=== PATIENT | male | born 1960 | race Caucasian/White ===

== ENCOUNTER 2019-01-28 22:41 | Day surgery (SDC) ==
[2019-01-28] MEDS ORDERED: ASPIRIN ONE (22:57)
[2019-01-28] MEDS ORDERED: MORPHINE IV ONE (23:05)
[2019-01-28 23:31] LABS: BASO# 0.03 X1000 (0.0-0.2); BASO% 0.5 % (0.0-0.8); EOS# 0.14 X1000 (0.0-0.7); EOS% 2.2 % (0.0-10.0); HEMATOCRIT 39.5 % (42.0-52.0); HEMOGLOBIN 13.6 g/dL (14.0-18.0); LYMPH# 2.29 X1000 (1.2-3.4); LYMPH% 36.2 % (20.5-51.1); MCHC 34.4 g/dL (33-37); MCV 81.4 FL (81-99); MONO# 0.88 X1000 (0.11-0.59); MONO% 13.9 % (1.7-9.3); MPV 12.3 FL (7.4-10.4); NEUT# 2.99 X1000 (1.4-6.5); NEUT% 47.2 % (42.2-75.2); PLT 161 X1000 (130-400); RBC 4.85 XMIL (4.7-6.1); RDW 13.9 % (11.5-14.5); WBC 6.33 X1000 (4.8-10.8)
[2019-01-28 23:39] LABS: INR 0.88; PROTIME 12.1 Seconds (11.0-16.0)
[2019-01-28 23:40] LABS: PTT 28.5 Seconds (22.3-41.8)
[2019-01-29 00:07] LABS: AGAP 13; ALB/GLOB RATIO 1.6; ALBUMIN 4.2 g/dL (3.5-5.0); ALKALINE PHOSPHATASE 155 U/L (32-122); BUN 16 mg/dL (8-22); CHLORIDE 102 mmol/L (98-107); COSMO 289; ESTIMATED GFR > 60; GLUCOSE 281 mg/dL (70-104); GOT 19 U/L (10-34); GPT 17 U/L (10-44); POTASSIUM 3.6 mmol/L (3.5-5.1); SODIUM 139 mmol/L (136-145); TCO2 24 mmol/L (25-35); TOTAL BILIRUBIN 0.23 mg/dL (0.20-1.00); TOTAL PROTEIN 6.9 g/dL (6.3-8.3)
[2019-01-29 00:11] LABS: CK PROFILE 487 U/L (24-204)
[2019-01-29 00:31] LABS: CK INDEX 1.2 (0.0-2.5); CK-MB 5.92 ng/mL (0.0-5.0)
[2019-01-29] MEDS ORDERED: NITROGLYCERIN SL PRN (04:39)
[2019-01-29] MEDS ORDERED: TYLENOL PO PRN (04:39)
[2019-01-29] MEDS ORDERED: MORPHINE IV PRN ×2 (04:39→16:46)
[2019-01-29] MEDS ORDERED: ZOFRAN IV PRN (04:39)
[2019-01-29] MEDS: LOVENOX SUBQ SCH ×2 (06:01→06:05)
[2019-01-29 06:03] LABS: CK INDEX 1.2 (0.0-2.5); CK-MB 3.96 ng/mL (0.0-5.0)
[2019-01-29] MEDS: HUMULIN R SUBQ SCH ×4 (06:05→21:03)
[2019-01-29] MEDS ORDERED: PRILOSEC PO SCH (07:00)
[2019-01-29] MEDS: ASPIRIN PO SCH (08:24)
[2019-01-29 14:03] LABS: CK INDEX 1.3 (0.0-2.5); CK-MB 3.54 ng/mL (0.0-5.0)
[2019-01-29] MEDS: PERCOCET-5 PO SCH ×2 (17:39→21:01)
[2019-01-29] MEDS ORDERED: LIPITOR PO SCH (21:00)
[2019-01-29] MEDS ORDERED: PERICOLACE PO SCH (21:00)
[2019-01-29] MEDS: COREG PO SCH (21:01)
[2019-01-29] MEDS: LASIX PO SCH (21:01)
[2019-01-29] MEDS: CYMBALTA PO SCH (21:01)
[2019-01-29 21:31] LABS: CK INDEX 1.4 (0.0-2.5); CK-MB 3.48 ng/mL (0.0-5.0)
[2019-01-29] MEDS: GLUCOTROL XL PO SCH (21:32)
[2019-01-30 05:35] LABS: BASO# 0.04 X1000 (0.0-0.2); BASO% 0.7 % (0.0-0.8); EOS# 0.18 X1000 (0.0-0.7); EOS% 3.3 % (0.0-10.0); HEMATOCRIT 36.5 % (42.0-52.0); HEMOGLOBIN 12.3 g/dL (14.0-18.0); LYMPH# 2.44 X1000 (1.2-3.4); MCH 27.9 PG (27-31); MCHC 33.7 g/dL (33-37); MCV 82.8 FL (81-99); MONO# 0.71 X1000 (0.11-0.59); MONO% 13.1 % (1.7-9.3); MPV 12.1 FL (7.4-10.4); NEUT# 2.05 X1000 (1.4-6.5); NEUT% 37.9 % (42.2-75.2); PLT 155 X1000 (130-400); RBC 4.41 XMIL (4.7-6.1); RDW 13.8 % (11.5-14.5); WBC 5.42 X1000 (4.8-10.8)
[2019-01-30 06:00] LABS: AGAP 9; BUN 10 mg/dL (8-22); CALCIUM 8.6 mg/dL (8.8-10.2); CHLORIDE 103 mmol/L (98-107); CHOLESTEROL 118 mg/dL (0-200); COSMO 279; CREATININE 0.9 mg/dL (0.7-1.2); ESTIMATED GFR > 60; GLUCOSE 171 mg/dL (70-104); HDL 35 mg/dL (35-55); LDL 64 mg/dL; POTASSIUM 3.9 mmol/L (3.5-5.1); SODIUM 138 mmol/L (136-145); TCO2 26 mmol/L (25-35); TRIGLYCERIDES 97 mg/dL (39-160); VLDL 19 mg/dL
[2019-01-30] MEDS: LOVENOX SUBQ SCH (06:29)
[2019-01-30] MEDS: HUMULIN R SUBQ SCH ×2 (06:46→11:39)
[2019-01-30] MEDS ORDERED: KLOR-CON PO SCH (09:00)
[2019-01-30] MEDS ORDERED: SYNTHROID PO SCH (09:00)
[2019-01-30] MEDS ORDERED: PRILOSEC PO SCH (09:00)
[2019-01-30] MEDS ORDERED: HYDROCHLOROTHIAZIDE PO SCH (09:00)
[2019-01-30] MEDS ORDERED: LANTUS INSULIN SUBQ SCH (09:00)
[2019-01-30] MEDS ORDERED: JANUVIA PO SCH (09:00)
[2019-01-30] MEDS: PERCOCET-5 PO SCH ×2 (11:12→14:21)
[2019-01-30] MEDS: LASIX PO SCH (11:14)
[2019-01-30] MEDS: COREG PO SCH (11:14)
[2019-01-30] MEDS: CYMBALTA PO SCH (11:15)
[2019-01-30] MEDS: GLUCOTROL XL PO SCH (11:15)
[2019-01-30] MEDS: ASPIRIN PO SCH (11:25)
[2019-01-30 16:38] VITALS: BP 169/84
== END 2019-01-30 18:14 | disposition home or self-care (01) ==
LOC: ED 22:41 → SUATTDRO 01-29 04:57 → OPS 01-29 04:57 → INTOOBSV 01-29 04:57 → 1N 01-29 04:57 → OPS 01-30 18:14
PROVIDERS: ATTEND Internal Medicine

== ENCOUNTER 2019-03-24 12:56 | Inpatient (IN) ==
--- NOTE | 2019-03-24 13:28 | Diag Imaging Result Doc PS360 ---
EXAM: CHEST-2 VIEWS HISTORY: cough TECHNIQUE: Two views COMPARISON: 01/30/2019 FINDINGS: The lungs are well expanded. The heart is not enlarged. There are sternal wires. The vessels are not distended. There are no infiltrates. No pleural effusions. IMPRESSION: No pneumonia Electronically signed by Buck Berger 03/24/2019 1:26 PM
[2019-03-24] MEDS ORDERED: ASPIRIN PO ONE (14:54)
--- NOTE | 2019-03-24 15:08 | EKG Report ---
Test Performed on : 03/24/2019 1:04:10 PM Test Reason : Chest pain Blood Pressure : / mmHG Vent. Rate : 120 BPM Atrial Rate : 120 BPM P-R Int : 172 ms QRS Dur : 106 ms QT Int : 320 ms P-R-T Axes : 066 -78 068 degrees QTc Int : 452 ms Sinus tachycardia. Possible Left atrial enlargement Incomplete right bundle branch block Left anterior fascicular block Abnormal ECG When compared with ECG of 29-JAN-2019 05:55, Incomplete right bundle branch block has replaced Nonspecific intraventricular block Unconfirmed Result
[2019-03-24 15:32] LABS: BASO# 0.03 X1000 (0.0-0.2); BASO% 0.2 % (0.0-0.8); EOS# 0.09 X1000 (0.0-0.7); EOS% 0.7 % (0.0-10.0); HEMATOCRIT 38.7 % (42.0-52.0); IMM GRAN# 0.05 X1000 (0.0-0.04); IMM GRAN% 0.4 % (0.0-0.5); LYMPH# 2.11 X1000 (1.2-3.4); LYMPH% 15.9 % (20.5-51.1); MCH 28.3 PG (27-31); MCHC 33.6 g/dL (33-37); MCV 84.1 FL (81-99); MONO% 12.1 % (1.7-9.3); MPV 11.4 FL (7.4-10.4); NEUT# 9.39 X1000 (1.4-6.5); NEUT% 70.7 % (42.2-75.2); PLT 219 X1000 (130-400); RDW 14.1 % (11.5-14.5); WBC 13.27 X1000 (4.8-10.8)
[2019-03-24 15:41] LABS: INR 1.02; PROTIME 13.5 Seconds (11.0-16.0)
[2019-03-24 15:43] LABS: AGAP 15; ALB/GLOB RATIO 1.4; ALKALINE PHOSPHATASE 127 U/L (32-122); BUN 24 mg/dL (8-22); CALCIUM 9.4 mg/dL (8.8-10.2); CHLORIDE 97 mmol/L (98-107); COSMO 283; CREATININE 1.1 mg/dL (0.7-1.2); ESTIMATED GFR > 60; GLUCOSE 192 mg/dL (70-104); GOT 11 U/L (10-34); GPT 11 U/L (10-44); POTASSIUM 4.3 mmol/L (3.5-5.1); SODIUM 137 mmol/L (136-145); TCO2 25 mmol/L (25-35); TOTAL BILIRUBIN 0.49 mg/dL (0.20-1.00); TOTAL PROTEIN 6.9 g/dL (6.3-8.3)
[2019-03-24 15:51] LABS: CK PROFILE 235 U/L (24-204)
[2019-03-24] MEDS ORDERED: NS 500 ML IV ONE ×2 (15:56→17:51)
[2019-03-24 16:21] LABS: CK INDEX 1.1 (0.0-2.5); CK-MB 2.65 ng/mL (0.0-5.0)
[2019-03-24] MEDS ORDERED: ROCEPHIN 1 GM in NS 50 ML IV ONE (17:50)
[2019-03-24] MEDS ORDERED: ZITHROMAX 500 MG/NS 500 MG/250 ML IVPB IV ONE (17:50)
--- NOTE | 2019-03-24 21:10 | Diag Imaging Result Doc PS360 ---
EXAM: CT THORAX W/O CONTRAST 03/24/2019 HISTORY: Chest pain and shortness of breath TECHNIQUE: This exam was performed using automated exposure control, adjustment of mA or kV according to patient size, and/or use of iterative reconstruction technique. COMMENT: The current examination is compared with the previous study of 05/12/2018. There are some calcifications in the thoracic aorta and extensively in the coronary arteries. There has been previous sternotomy. There is no evidence of significant adenopathy or abnormal fluid collections. There is ill-defined opacity and tree-in-bud opacities in the left lower lobe and to a lesser extent elsewhere in both lungs. Compared to the previous examination this was not the case previously. The regional skeleton is stable in appearance. IMPRESSION: Mild bronchopneumonia. Electronically signed by Tavo Mary 03/24/2019 9:07 PM
--- NOTE | 2019-03-24 21:34 | PROVIDER DOCUMENTATION ---
This chart was entered by Alis Leija Scribe, acting as scribe for Reji You MD. HPI-General Adult - General Chief Complaint: Chest Pain Stated Complaint: CP HEART PT Time Seen by Provider: 03/24/19 14:51 Source: patient Allergies/Adverse Reactions: Patient Allergies Allergy/AdvReac Type Severity Reaction Status Date / Time No Known Allergies Allergy Verified 03/24/19 19:35 Home Medications: Home Medication List Medication Instructions Recorded Confirmed Last Taken Type Insulin Glargine [Lantus] 50 unit SUBQ QHS 02/07/18 01/30/19 01/28/19 History Furosemide 40 mg PO TID 04/28/18 01/30/19 01/28/19 History Sennosides/Docusate Sodium [Cvs 250 mg PO TID 04/28/18 01/30/19 Unknown History Stool Softener Tablet] Omeprazole 40 mg PO DAILY 05/25/18 01/29/19 Unknown History ATORVAstatin [Lipitor] 40 mg PO QHS 08/01/18 01/29/19 01/28/19 History Carvedilol 3.125 mg PO BID 08/01/18 01/29/19 Unknown History Hydrochlorothiazide 12.5 mg PO TID 08/01/18 01/30/19 01/28/19 History Duloxetine HCl 1 cap PO BID 01/29/19 01/29/19 Unknown History Glipizide [Glipizide ER] 1 tab PO BID 01/29/19 01/29/19 Unknown History Levothyroxine [Synthroid] 50 microgm PO DAILY 01/29/19 01/29/19 Unknown History Oxycodone HCl/Acetaminophen 1 tab PO TID 01/29/19 01/29/19 Unknown History [Oxycodone-Acetaminophen 5-325] Potassium Chloride E.r. [Klor-Con] 20 meq PO TID 01/29/19 01/30/19 Unknown History Sitagliptin Phosphate [Januvia] 100 mg PO DAILY 01/29/19 01/29/19 Unknown History Metformin E.r. [Glucophage Xr] 1 tab PO BID 01/30/19 01/30/19 Unknown History - History of Present Illness -Gen Adult Nature of Presenting Problems: Patient is a 49 y/o male presenting to the ED today c/o chest pain and SOB. Patient reports onset of symptoms last Wednesday. Patient states he went to see his PCP, Dr. Feliciano, who told him he had a viral infection and gave him Rx fpr Jasbir patterson. Patient describes his chest pain as burning and sharp and there is also pain in his neck. Patient also c/o dizziness and SOB. Patient reports onset of N/V last night and reports vomiting has continued through today. Patient reports he has been coughing up some sputum. Patient reports increased fatigue and intermittent palpitations. Patient also c/o diarrhea. Patient reports he has intermittent upper back/neck pain but reports he does not feel that this is a radiation of his chest pain. Patient reports he has had an AL previously and that these symptoms may be similar. Patient reports he had a CABGx3 13 months ago. Patient reports he has had fever which he reports has reached 103.0-104.0. Patient denies history of blood clots. Patient denies smoking. Patient denies all other signs/symptoms. Location of Pain/Injury: reports: neck, chest Pain Radiation: reports: no radiation Quality of Pain: reports: burning, sharp Onset/Duration: reports: gradual, 1 week ago Timing: reports: still present, getting worse Context/Activities at Onset: reports: none Modifying Factors: improves with: nothing Associated Symptoms: reports: back/neck pain, chest pain, diarrhea, dizziness, fatigue, fever/chills, nausea, shortness of breath, vomiting Similar Symptoms Previously?: No Recently seen or treated by another doctor?: Yes (diagnosed with viral illness last Wednesday by Dr. Feliciano) Review of Systems - Adult - REVIEW OF SYSTEMS - ADULT Constitutional: reports: fever, fatique. denies: chills Eyes: reports: no symptoms reported Ears, Nose, Mouth & Throat: denies: throat pain Cardiovascular: reports: chest pain. denies: edema Respiratory: reports: shortness of breath. denies: cough Gastrointestinal: reports: diarrhea, nausea, vomiting. denies: abdominal pain Genitourinary: reports: no symptoms reported Musculoskeletal: reports: no symptoms reported Integumentary: reports: no symptoms reported Neurological: reports: dizziness/vertigo. denies: headache/migraines Psychiatric: reports: no symptoms reported Endocrine: reports: no symptoms reported Hematologic/Lymphatic: reports: no symptoms reported Allergic/Immunologic: reports: no symptoms reported Past History - Adult - PAST MEDICAL HISTORY-ADULT Review of Records: reports: Old Records Reviewed Major Childhood Illnesses: reports: history unknown Cardiovascular: reports: denies history Respiratory: reports: denies history Gastrointestinal: reports: GERD, ulcer Obstetrical/Gynecological: reports: denies history Genitourinary: reports: denies history Musculoskeletal: reports: denies history Neurological: reports: denies history Endocrine/Immune: reports: Diabetes Other Conditions: reports: denies history - PRIOR SURGERIES/PROCEDURES Surgical/Procedure History: reports: back/neck (back), other (rectal cancer resection; ileostomy; ileostomy reversal) - PRIOR HOSPITALIZATIONS Prior Hospitalizations: reports: none - IMMUNIZATION STATUS Childhood Immunizations: See Nurse Assessment Flu Vaccine: See Nurse Assessment - FAMILY HISTORY Family History: reviewed, not pertinent Physical Exam-General - PHYSICAL EXAM-ADULT Initial Vital Signs Reviewed: Yes - CONSTITUTIONAL General Appearance: alert, no apparent distress - EYES Eyes: negative: conjuctival exudate, sclera injected, scleral icterus, subconjunctival hemorrhage - HEAD, EARS, NOSE, MOUTH & THROAT HENMT: normocephalic/atraumatic, pharynx normal, other (dry mucous membranes) - NECK Neck: non-tender, supple, normal inspection - RESPIRATORY Respiratory: no respiratory distress, no accessory muscle use, rales (left lower lobe), wheezing (right apical) - CARDIOVASCULAR Cardiovascular: no murmur, JVD (mild), tachycardia, other (1+ LE edema bilaterally) - GASTROINTESTINAL (ABDOMEN) Abdominal Exam: non tender, soft. negative: distended, guarding, rebound - MUSCULOSKELETAL Extremity: non-tender - SKIN Integumentary: normal color, warm/dry - NEUROLOGIC Neurologic: grossly normal - PSYCHIATRIC Psych/Mental Status: normal mood/affect, normal thought content, normal thought process Progress - PLAN OF CARE/RESULTS Progress/Plan/Lab Results: Vital Signs - 8 hr 03/24/19 13:05 Temperature 98.6 F Pulse Rate 123 H Respiratory Rate 21 Blood Pressure 134/64 O2 Sat by Pulse Oximetry 95 03/24/19 13:00 Influenza Screen - Final Nasopharyngeal Orders Category Date Time Status Cardiac Monitoring DIRECTED Care 03/24/19 14:54 Active Oxygen Therapy- ED Nursing DIRECTED Care 03/24/19 14:54 Active Saline Loc NOW Care 03/24/19 14:54 Active CHEST-2 VIEWS [RAD] Stat Exams 03/24/19 13:11 Completed CBC WITH ELECTRONIC DIFF [HEME] Stat Lab 03/24/19 14:54 Uncollected CK PROFILE [SP CHEM] Stat Lab 03/24/19 14:54 Uncollected COMPREHENSIVE METABOLIC PANEL [CHEM] Stat Lab 03/24/19 14:54 Uncollected INFLUENZA SCREEN A/B Stat Lab 03/24/19 13:00 Completed PRO B-NATRIURETIC PEPTIDE Stat Lab 03/24/19 14:54 Uncollected PROTIME WITH INR [COAG] Stat Lab 03/24/19 14:54 Uncollected PTT [COAG] Stat Lab 03/24/19 14:54 Uncollected TROPONIN T Stat Lab 03/24/19 14:54 Uncollected Aspirin Med 03/24/19 14:54 Discontinued 325 mg PO NOW ONE CP/SOB/Palp >45 yrs of Age Stat Oth 03/24/19 14:54 Ordered EKG [EKG] Stat Ther 03/24/19 14:54 Draft Result Diagrams: 03/24/19 15:16 03/24/19 15:16 - EKG 1 Time of EKG reading by physician:: 13:04 EKG Read and Signed by:: Kim Powell EKG Interpretation (*Must complete 3 of following elements*): Abnormal Rate: 120 Rhythm: Sinus tachycardia QRS: RBB (incomplete), other (possible left atrial enlargement, left anterior fascicular block) CT Interval: normal ST Wave: normal - XRAY 1 XRAY Study: Chest Impression: See EMR Report (EXAM: CHEST-2 VIEWS HISTORY: cough TECHNIQUE: Two views COMPARISON: 01/30/2019 FINDINGS: The lungs are well expanded. The heart is not enlarged. There are sternal wires. The vessels are not distended. There are no infiltrates. No pleural effusions. IMPRESSION: No pneumonia Electronically signed by Buck Berger 03/24/2019 1:26 PM 03/24/19 1326 Inte rpreting Physician: Buck Berger MD Dictated Date/Time: 03/24/19 1326 cc: Kim Powell MD; Jessa Barkley) Departure - Departure Date of Disposition Decision: 03/24/19 Time of Disposition Decision: 21:32 DIAGNOSIS: Pneumonia Qualifiers: Pneumonia type: due to unspecified organism Laterality: unspecified laterality Lung location: unspecified part of lung Qualified Code(s): J18.9 - Pneumonia, unspecified organism Disposition: ADMITTED INPATIENT 09 Certified Medical Emergency: Emergent Condition: Fair Referrals and Follow-Ups: Jessa Barkley CRNP [Primary Care Provider] - - Critical Care Note This patient required my direct & personal management of CC.: No Attestation - Physician/ SOTO Attestation Patient care was provided by Advanced Practice Provider:: No The physician spent face to face time with patient:: Yes Advanced Practice Provider documentation review:: Supervising physician onsite and consulted in the evaluation and care of this patient. The physician did have a face to face encounter with the patient. This chart was documented by the indicated scribe, (Alis Leija Scribe) and accurately reflects the services I performed and decisions made by me, Reji You MD, as attested by the provider's signature.
--- NOTE | 2019-03-24 21:58 | HISTORY AND PHYSICAL ---
REASON FOR ADMISSION: Two-week history of worsening shortness of breath. PRIMARY CARE PROVIDER: KARIS Hassan HISTORY OF PRESENT ILLNESS: Mr. Jah Noel is a 58-year-old male with past medical history of coronary artery disease; type 2 diabetes; hypertension; hyperlipidemia; colorectal cancer, status post low anterior resection with diverting loop ileostomy. The patient comes in today. He states that for the past 1 year after having a CABG he has been having chronic dyspnea; however, over the last 1 month, his dyspnea has become progressively worse and has even been exacerbated over the last 1-2 weeks. He says for the last 1-2 weeks he has been coughing up greenish sputum with intermittent subjective fever and chills. He denies any lower extremity leg swelling or pain, but also complains of increased generalized weakness, postural lightheadedness and even shortness of breath at rest. He said that over the last couple of days he has been having orthopnea and PND. He complains of upper chest pain confined to the sternal angle and the sternal notch area, which is worse when he coughs or when he swallows. The pain does not radiate anywhere and is sharp in quality. REVIEW OF SYSTEMS: The patient complains of diffuse aches and pains for the last couple of weeks. He denies any close contacts whatsoever. He denies any change in his home medications. He denies any extremity redness or pain. He denies any palpitations. No GI or complaints, other than occasional vomiting twice a day over the last week. No coffee-ground emesis. No melena or bleeding from any orifice. Twelve-system review was done. Positive findings per HPI. ALLERGIES: None. MEDICATIONS: Home medication list has not been reconciled. FAMILY HISTORY: Sister had diabetes. No heart disease in first-degree relatives. Father of lung cancer. PAST SURGICAL HISTORY: CABG, right forearm surgery, back surgery, and the aforementioned colon related surgeries. SOCIAL HISTORY: He stopped smoking about 3 years ago. Drinks about a 6-pack total in a year. No illicit drug use. Lives alone. LABORATORY DATA: White count 13,000, hemoglobin and hematocrit 13 and 38, platelets 219,000 with slight left shift. BUN is 24, creatinine 1.1, glucose 192, alkaline phosphatase 127. Troponin is 0.019. ProBNP is normal. PT, PTT is normal. DIAGNOSTIC DATA: Chest film shows no overt pneumonia. PHYSICAL EXAMINATION: VITAL SIGNS: Blood pressure is 134/80, heart rate is 109, respiratory rate 27. He is 98% on room air. Not using accessory muscles. GENERAL: He is an obese, middle-aged man, not in acute distress. Alert and oriented x3 with normal mood and affect. HEENT: Head is normocephalic, atraumatic. Eyes: PERRL, EOMI. He is anicteric, not pale. ENT and oropharynx exam is grossly normal. No oropharyngeal exudates. No central cyanosis. NECK: Short and thick. No JVD or carotid bruit. No thyromegaly. No lymphadenopathy. CHEST: Decreased air entry at the bases. A few scattered expiratory wheezes and a few bibasilar crepitations. CARDIOVASCULAR: First and second heart sounds heard. No gallops or murmurs. Rhythm is regular. ABDOMEN: Protuberant, soft, with no focal areas of tenderness. No mass or organomegaly. Bowel sounds are normal. RECTAL: Exam deferred at this time. EXTREMITIES: The patient has good distal pulse volumes, regular, symmetrical. No overt edema noted. No clubbing or peripheral cyanosis. NEUROLOGIC: No gross focal deficits. SKIN: Intact. No breakdown, lesions or erythema. MUSCULOSKELETAL: Exam is grossly normal. ASSESSMENT AND PLAN: 1. Shortness of breath, fever, chills, white count and greenish productive cough strongly suggest a pneumonia. We will treat the patient with Rocephin and Zithromax for now. Start the patient on breathing treatments. 2. Type 2 diabetes, probably uncontrolled. Continue Lantus and sliding scale. 3. Depleted intravascular volume. Continue intravenous fluids. 4. Coronary artery disease. Continue aspirin, statins listed on his old sheet and beta-blockers once they have been reconciled. 5. Hypertension. Continue antihypertensives once reconciled. The patient's lactate is 1.3. There is no evidence of sepsis at this point in time. We will be vigilant. If the patient continues to show signs of deterioration, may need to alter antibiotics to cover for nosocomial pathogens. cc: MD Jessa Chris CRNP
[2019-03-24] MEDS ORDERED: TYLENOL PO PRN (22:23)
[2019-03-24] MEDS ORDERED: ZOFRAN IV PRN (22:23)
[2019-03-24] MEDS ORDERED: ZITHROMAX PO SCH (22:23)
[2019-03-24] MEDS: DUONEB (A & A) INH SCH (23:10)
[2019-03-24] MEDS: HUMALOG SUBQ SCH (23:20)
[2019-03-24] MEDS: LANTUS INSULIN SUBQ SCH (23:24)
[2019-03-24] MEDS: LOVENOX SUBQ SCH (23:25)
[2019-03-25] MEDS: DUONEB (A & A) INH SCH ×4 (03:45→22:45)
[2019-03-25] MEDS: HUMALOG SUBQ SCH ×4 (06:34→21:00)
[2019-03-25 08:21] LABS: BASO# 0.02 X1000 (0.0-0.2); BASO% 0.2 % (0.0-0.8); EOS# 0.05 X1000 (0.0-0.7); EOS% 0.4 % (0.0-10.0); HEMOGLOBIN 11.6 g/dL (14.0-18.0); IMM GRAN# 0.03 X1000 (0.0-0.04); IMM GRAN% 0.3 % (0.0-0.5); LYMPH# 2.18 X1000 (1.2-3.4); LYMPH% 18.8 % (20.5-51.1); MCV 90.1 FL (81-99); MONO# 1.16 X1000 (0.11-0.59); MPV 11.5 FL (7.4-10.4); NEUT# 8.18 X1000 (1.4-6.5); NEUT% 70.3 % (42.2-75.2); PLT 154 X1000 (130-400); RBC 3.22 XMIL (4.7-6.1); RDW 14.9 % (11.5-14.5); WBC 11.62 X1000 (4.8-10.8)
[2019-03-25 08:43] LABS: AGAP 15; BUN 27 mg/dL (8-22); CALCIUM 8.5 mg/dL (8.8-10.2); CHLORIDE 96 mmol/L (98-107); COSMO 278; CREATININE 1.1 mg/dL (0.7-1.2); ESTIMATED GFR > 60; GLUCOSE 243 mg/dL (70-104); POTASSIUM 3.9 mmol/L (3.5-5.1); SODIUM 132 mmol/L (136-145); TCO2 21 mmol/L (25-35)
[2019-03-25] MEDS ORDERED: ZITHROMAX PO SCH (09:00)
[2019-03-25 09:30] LABS: ANISOCYTOSIS 2+; LYMPHS 16 % (21-51); MONO 11 % (1-9); SEGS 73 % (42-75)
[2019-03-25 12:21] LABS: HEMOGLOBIN A1C 9.3 % (4.8-6.0)
[2019-03-25] MEDS: LEVAQUIN 750 MG in NS 150 ML IV SCH (12:26)
[2019-03-25] MEDS: ROCEPHIN 2 GM in NS 50 ML IV SCH (17:32)
[2019-03-25] MEDS ORDERED: ROCEPHIN 1 GM in NS 50 ML IV SCH (18:00)
--- NOTE | 2019-03-25 21:59 | PROGRESS NOTE ---
DATE: 03/25/2019 SUBJECTIVE: The patient reports breathing better. He is still having plenty of sputum production, greenish. OBJECTIVE: Vital Signs: Temperature 97.6, heart rate 98, respiratory rate 18, blood pressure 103/54, O2 saturation 95% on room air. General: This is a 58-year-old male, lying in bed in no acute distress. Cardiovascular: S1, S2 heard. No murmurs, gallops, or rubs. Regular rate and rhythm. Respiratory: A few scattered wheezes noted in both pulmonary bases as well as some rhonchi. The patient is not using any accessory muscles or having work of breathing. Abdomen: Soft, nontender to palpation. Bowel sounds present. No organomegaly. Extremities: No clubbing, cyanosis, or edema. Abdomen: Soft, nontender to palpation. Bowel sounds present. No organomegaly. Extremities: No clubbing, cyanosis, or edema. Peripheral pulses present in both legs. Neurological: The patient is alert and oriented x3. Moves all 4 extremities. LABORATORY DATA: White cell count 11.32, hemoglobin 11.6, hematocrit 29.0, platelets 154. Normal BMP. ASSESSMENT AND PLAN: 1. Left bronchopneumonia. Will continue with ceftriaxone and will add Levaquin to his current treatment. We will continue with breathing treatments every 4 to 6 hours, scheduled. 2. Diabetes mellitus type 2. We will continue with Lantus and sliding-scale insulin. 3. Coronary artery disease, stable. No chest pain noted. We will continue with home medications. 4. Hypertension. Blood pressure is under control. We will continue with the same management. 5. Disposition: We will continue to monitor this patient closely. We will most likely keep this patient over the weekend and on Wednesday will send him home. cc: Jayy Ross MD
[2019-03-25] MEDS ORDERED: ATROVENT NEB INH ONE (22:35)
[2019-03-25] MEDS ORDERED: XOPENEX NEB INH ONE (22:35)
[2019-03-25] MEDS ORDERED: NITROGLYCERIN SL PRN (22:38)
[2019-03-25] MEDS ORDERED: ASPIRIN PO ONE (22:38)
[2019-03-25 22:45] LABS: ALLEN TEST YES; BE -3.4 mmoll (-3.0-3.0); BLOOD TYPE ARTERIAL; HCO3-(ACT) 22.3 mmoll (20.0-26.0); METHB 0.7 % (0.0-1.5); O2(CT) 16.3 mL/dL (15.0-23.0); PCO2(98.6) 28 mmHg (35-45); PO2(98.6) 88 mmHg (60-100); SAMPLE BLOOD; SAO2 98.1 % (95.0-100.0); pH(98.6) 7.45 (7.35-7.45)
[2019-03-25] MEDS ORDERED: NS NEB INH SCH (22:45)
[2019-03-25 22:46] LABS: MODALITY COOL AEROSOL
[2019-03-25] MEDS ORDERED: G.I. COCKTAIL PO ONE (22:52)
[2019-03-25] MEDS ORDERED: SOLU-MEDROL IV ONE (22:52)
[2019-03-25] MEDS ORDERED: ALBUTEROL NEB INH ONE (22:55)
--- NOTE | 2019-03-25 22:58 | EKG Report ---
Test Performed on : 03/25/2019 10:32:15 PM Test Reason : CP and SOB Blood Pressure : / mmHG Vent. Rate : 125 BPM Atrial Rate : 125 BPM P-R Int : 176 ms QRS Dur : 112 ms QT Int : 300 ms P-R-T Axes : 063 -71 070 degrees QTc Int : 433 ms Sinus tachycardia. Possible Left atrial enlargement Left anterior fascicular block Abnormal ECG When compared with ECG of 24-MAR-2019 13:04, (Unconfirmed) Incomplete right bundle branch block is no longer present Confirmed by Beatriz PRATT, Art ([id number]) on 03/27/2019 8:17:32 AM
[2019-03-25] MEDS ORDERED: SODIUM CHLORIDE 0.9% INJ SCH (23:15)
[2019-03-25] MEDS: LOVENOX SUBQ SCH (23:17)
[2019-03-25] MEDS: PROTONIX IV SCH (23:28)
[2019-03-25] MEDS: LANTUS INSULIN SUBQ SCH (23:32)
[2019-03-26 00:07] LABS: AGAP 17; BUN 23 mg/dL (8-22); CALCIUM 8.8 mg/dL (8.8-10.2); CHLORIDE 100 mmol/L (98-107); CK PROFILE 279 U/L (24-204); COSMO 286; CREATININE 1.2 mg/dL (0.7-1.2); ESTIMATED GFR > 60; GLUCOSE 278 mg/dL (70-104); MAGNESIUM 1.8 mg/dL (1.5-2.7); POTASSIUM 4.6 mmol/L (3.5-5.1); SODIUM 136 mmol/L (136-145); TCO2 19 mmol/L (25-35)
[2019-03-26 00:25] LABS: CK-MB 2.74 ng/mL (0.0-5.0)
[2019-03-26] MEDS: MUCINEX PO SCH ×3 (02:38→21:22)
[2019-03-26] MEDS: DUONEB (A & A) INH SCH ×2 (03:35→11:07)
[2019-03-26] MEDS: HUMALOG SUBQ SCH ×4 (06:12→21:21)
--- NOTE | 2019-03-26 07:36 | Diag Imaging Result Doc PS360 ---
EXAM: CHEST-PORTABLE 03/25/2019 HISTORY: CP and SOB TECHNIQUE: AP portable at 2246 COMMENT: There is ill-defined opacity in the parahilar region and left lower lobe on the left. This was also present on 03/24/2019 but not on 01/30/2019. IMPRESSION: Left lower lobe pneumonia. Electronically signed by Tavo Mary 03/26/2019 7:34 AM
[2019-03-26 08:02] LABS: BASO# 0.01 X1000 (0.0-0.2); BASO% 0.1 % (0.0-0.8); EOS# 0.03 X1000 (0.0-0.7); EOS% 0.3 % (0.0-10.0); HEMOGLOBIN 11.3 g/dL (14.0-18.0); IMM GRAN# 0.03 X1000 (0.0-0.04); IMM GRAN% 0.3 % (0.0-0.5); LYMPH# 0.76 X1000 (1.2-3.4); LYMPH% 8.6 % (20.5-51.1); MCH 29.5 PG (27-31); MCHC 34.2 g/dL (33-37); MCV 86.2 FL (81-99); MONO# 0.12 X1000 (0.11-0.59); MONO% 1.4 % (1.7-9.3); MPV 11.8 FL (7.4-10.4); NEUT# 7.86 X1000 (1.4-6.5); NEUT% 89.3 % (42.2-75.2); PLT 161 X1000 (130-400); RBC 3.83 XMIL (4.7-6.1); RDW 13.5 % (11.5-14.5); WBC 8.81 X1000 (4.8-10.8)
--- NOTE | 2019-03-26 08:03 | PROGRESS NOTE ---
DATE AND TIME: 03/26/2019 at 2225. Critical Care Progress Note. At approximately 2225 a critical assistance team call was made for the patient due to respiratory distress. Mr. Noel was admitted on March 24 after coming in complaining of worsening shortness of breath and was diagnosed with left bronchopneumonia. He does have a history reportedly of COPD as well as coronary artery disease, status post a CABG approximately 1 year ago. Upon arriving to the room, the patient was in respiratory distress. He was dyspneic, tachypneic, and diaphoretic. The nurses had come into the room to find him having difficulty breathing. They did try to place oxygen on the patient due to his room air oxygen saturation of 88%. The patient initially refused. They were able to get him to put on a nasal cannula. With oxygen supplementation per nasal cannula, his O2 saturations did improve to the high 90s. Upon listening to the patient, he does sound very diminished. He had very slight expiratory wheezing. He did not look as though he was able to move a whole lot air. We did initially try to give a Xopenex treatment due to his heart rate was elevated in the high 130s. Though this did help a little bit, he still sounded very diminished and still having some wheezing. We did give him additional albuterol and Atrovent treatment. After this treatment, the patient is now having much improved lung sounds. He sounds less diminished. He does have some rhonchi and crackles diffusely bilaterally, though his respiratory status has improved. He is still slightly tachypneic, though this is much improved also. His oxygen saturations are still maintaining in the high 90s to 100s. The patient was also complaining of a pressure type chest pain in the center of his chest. Upon questioning him, he stated that the chest pain started before the shortness of breath started. Given his history of CABG, we did go ahead and do an EKG. There were no acute changes from the EKG that was performed 2 days ago. We did order stat labs of ABGs, BMP, magnesium, troponin, CK, and a chest x-ray. ABGs were unremarkable. Chest x-ray did not show any acute changes from the one that was done 2 days ago. We are awaiting the rest of his laboratory results to come back at this time. Though his heart rate is elevated in the 120s, blood pressure is okay. It was systolically 150s to 160s during the CAT call. His fingerstick blood sugar was elevated at 289. We did give the patient some sublingual nitroglycerin. I do believe this did help his chest pain as well. We also ordered other additional medicines of aspirin 325 mg p.o., Solu-Medrol 125 mg IV. We did order him some Protonix as well. I did offer the patient also some GI cocktail, though he reports he did not want to take this. The patient does have a pretty significant history of having esophagitis and gastritis. Given that he is reporting it to be kind of substernal chest pain in the lower center chest, almost in the epigastric area, his chest pain could possibly be related to acid reflux. He has been reporting that he has been having a lot of productive coughing and sputum production. We will go ahead and add on additional medicine of Mucinex as well. I do believe that the patient's condition has much improved. At this time, I feel like he is okay to stay on the medical floor. He is on continuous cardiac telemetry. We will go ahead and increase his vital signs to q.4 hours and we will monitor him closer tonight throughout the night, watching his cardiovascular and respiratory status closely. Further orders and recommendations pending hospital course, diagnostic studies, and physician evaluation. Dictated by KARIS Dey for Rocco Hannah MD cc: Rocco Hannah MD MTD
[2019-03-26 08:55] LABS: AGAP 15; ALBUMIN 3.6 g/dL (3.5-5.0); BUN 24 mg/dL (8-22); CHLORIDE 98 mmol/L (98-107); CK-MB 2.69 ng/mL (0.0-5.0); COSMO 289; CREATININE 1.2 mg/dL (0.7-1.2); ESTIMATED GFR > 60; PHOSPHORUS 3.8 mg/dL (2.7-4.5); POTASSIUM 4.9 mmol/L (3.5-5.1); SODIUM 134 mmol/L (136-145); TCO2 21 mmol/L (25-35)
[2019-03-26 09:12] LABS: GLUCOSE 406 mg/dL (70-104)
[2019-03-26] MEDS: SOLU-MEDROL IV SCH ×2 (10:15→21:21)
[2019-03-26] MEDS ORDERED: HUMALOG SUBQ SCH (11:00)
[2019-03-26] MEDS ORDERED: HUMALOG SUBQ ONE (11:55)
[2019-03-26] MEDS: LEVAQUIN 750 MG in NS 150 ML IV SCH (12:05)
[2019-03-26] MEDS ORDERED: DUONEB (A & A) INH PRN (12:54)
[2019-03-26] MEDS ORDERED: HUMULIN R SUBQ ONE (13:24)
[2019-03-26 14:46] LABS: CK-MB 3.66 ng/mL (0.0-5.0)
[2019-03-26] MEDS: ROCEPHIN 2 GM in NS 50 ML IV SCH (17:48)
--- NOTE | 2019-03-26 19:47 | PROGRESS NOTE ---
DATE: 03/26/2019 INTERVAL HISTORY: The patient reportedly with some respiratory distress overnight. He was noted to be wheezing with decreased air entry. He was started on steroids and given DuoNeb with rapid improvement. Still some very slight wheezing today, but otherwise respiratory symptoms appear to have essentially resolved. The patient is saturating well on room air without discomfort. Good air entry. Afebrile. Since being started on steroids, he says he has had some pretty significant hyperglycemia. Despite multiple adjustments in glucose, he was had multiple measurements of over 500. He is finally starting to come down. The patient has remained asymptomatic through this. REVIEW OF SYSTEMS: Twelve point review of systems negative except as per interval history. LABS: WBC 8.8, hemoglobin 11.3, hematocrit 33.0, platelets 161,000. Sodium 134, potassium 4.9, BUN 24, creatinine 1.2, glucose 247 to greater than 500. Troponin negative x4. IMAGING: Chest x-ray with left lower lobe pneumonia, but no new process. VITALS: T-max 98.4 degrees, pulse 99, respirations 18, blood pressure 153/66, O2 saturation 95% on room air. PHYSICAL EXAMINATION: General: No acute distress. Vitals: As above. HEENT: Normocephalic, atraumatic. Moist mucosa membranes. No cervical adenopathy. Cardiovascular: Regular rate and rhythm. No murmurs noted. Pulmonary: With faint end-expiratory wheezing. Good air entry throughout. No increased work of breathing. No accessory muscle use. Abdomen: Soft, nontender, nondistended. Bowel sounds positive. Extremities: Peripheral pulses intact. No clubbing, cyanosis, or edema. Neurologic: Cranial nerves grossly intact. No focal deficits. Psychiatric: Normal mood and affect. Awake, alert, oriented x3. Skin: No new rashes or lesions identified. ASSESSMENT AND PLAN: 1. Pneumonia on Rocephin and Levaquin. Appears to be improving overall. If he continues to do well, then may be able to change to Levaquin alone and discharge home tomorrow. 2. Likely chronic obstructive pulmonary disease exacerbation. The patient with some respiratory distress last night with wheezing and decreased air entry. Wheezing decreased and air entry markedly improved today. We will continue some steroids, but at the patient's request, we will move DuoNeb to as needed. If he continues to do well, may be able to change steroids to oral and discharge home tomorrow. 3. Diabetes mellitus. Worsened control since starting steroids. Adjusted sliding scale and Lantus. Monitor. 4. Coronary artery disease. Continue home medications. 5. Hypertension. Control reasonable. Continue current regimen. DISPOSITION: Monitor today given respiratory distress overnight. If he does well, may be able to discharge home on oral steroids and antibiotics tomorrow.
[2019-03-26] MEDS ORDERED: LANTUS INSULIN SUBQ SCH ×2 (21:00)
[2019-03-26] MEDS ORDERED: INSULIN PEN NEEDLES ONE (21:05)
[2019-03-26] MEDS: LOVENOX SUBQ SCH (21:22)
[2019-03-26] MEDS: PROTONIX IV SCH (21:39)
[2019-03-27] MEDS: HUMALOG SUBQ SCH ×2 (06:33→11:15)
[2019-03-27 07:37] LABS: EOS# 0.04 X1000 (0.0-0.7); EOS% 0.3 % (0.0-10.0); HEMOGLOBIN 11.6 g/dL (14.0-18.0); IMM GRAN# 0.05 X1000 (0.0-0.04); IMM GRAN% 0.4 % (0.0-0.5); LYMPH# 1.27 X1000 (1.2-3.4); LYMPH% 10.9 % (20.5-51.1); MCH 31.3 PG (27-31); MCHC 36.3 g/dL (33-37); MCV 86.3 FL (81-99); MONO# 0.48 X1000 (0.11-0.59); MONO% 4.1 % (1.7-9.3); MPV 12.1 FL (7.4-10.4); NEUT# 9.83 X1000 (1.4-6.5); NEUT% 84.3 % (42.2-75.2); PLT 196 X1000 (130-400); RBC 3.71 XMIL (4.7-6.1); RDW 13.7 % (11.5-14.5); WBC 11.67 X1000 (4.8-10.8)
[2019-03-27 07:43] LABS: AGAP 13; ALBUMIN 3.5 g/dL (3.5-5.0); BUN 28 mg/dL (8-22); CALCIUM 8.9 mg/dL (8.8-10.2); CHLORIDE 101 mmol/L (98-107); COSMO 286; ESTIMATED GFR > 60; GLUCOSE 288 mg/dL (70-104); PHOSPHORUS 3.1 mg/dL (2.7-4.5); POTASSIUM 4.8 mmol/L (3.5-5.1); SODIUM 135 mmol/L (136-145); TCO2 21 mmol/L (25-35)
[2019-03-27] MEDS: SOLU-MEDROL IV SCH (08:21)
[2019-03-27] MEDS: MUCINEX PO SCH (08:22)
[2019-03-27] MEDS: LEVAQUIN 750 MG in NS 150 ML IV SCH (12:44)
[2019-03-27 13:43] VITALS: BP 155/83
--- NOTE | 2019-03-28 15:43 | DISCHARGE SUMMARY ---
ADMISSION DATE: 03/24/2019 DISCHARGE DATE: 03/27/2019 DISCHARGE DIAGNOSES: 1. Left bronchopneumonia. 2. Diabetes mellitus type 2. 3. Intravascular volume depletion. 4. Coronary artery disease. 5. Hypertension. PROCEDURES: 1. Chest x-ray done on admission showed no pneumonia. 2. Chest CT showed mild bronchopneumonia. HOSPITAL COURSE: This is a 58-year-old male, past medical history of coronary artery disease, diabetes mellitus type 2, hypertension, hyperlipidemia, colorectal cancer who presented to the emergency department complaining of 1 to 2 weeks' history of worsening shortness of breath and cough with sputum production, greenish. The patient was evaluated in the ER. We found out that he had a pneumonia so we will provide IV antibiotics, broad spectrum. Patient started getting better. He did not spike any fever in the hospital. Today, the day of discharge, the patient was feeling better, so we plan to switch antibiotics to oral antibiotics. The patient will be seen in the office by primary care doctor. DISCHARGE PHYSICAL EXAMINATION: Temperature 98.1 degrees, heart rate 83, respiratory rate 18, blood pressure 153/83, O2 saturation 100% on room air. General Examination: This is a 58-year- old male, lying in bed, in no acute distress. Cardiovascular Exam: S1, S2 heard. No murmurs, gallops, or rubs. Regular rate and rhythm. Respiratory Exam: Clear bilaterally to auscultation. No work of breathing or using accessory muscles. Abdomen: Soft, nontender to palpation. Bowel sounds present. No organomegaly. Extremities: No clubbing, cyanosis, or edema. Peripheral pulses present in both legs. Neurologic: Patient alert and oriented x3. Moves 4 extremities. DISCHARGE DISPOSITION: Home to self-care. MEDICATIONS: 1. Levofloxacin 750 mg 1 tablet p.o. daily for 10 days. 2. Ventolin 2 puffs inhalation as needed. 3. Medrol Dosepak, as directed. FOLLOW UP: With his primary care physician in a week. cc: Jayy Ross MD
== END 2019-03-27 16:06 | disposition home or self-care (01) | DRG 194 ==
LOC: ED 12:56 → 3N 21:48 → SUPCPDRO 21:48 → SUATTDRO 21:48
PROVIDERS: ATTEND Internal Medicine